=== PATIENT | female | born 1940 | race Caucasian/White ===

== ENCOUNTER 2017-05-19 15:23 | Emergency (ER) | payer MEDICARE ==
[~2017-05-19] VITALS: Ht 170.2 cm; Wt 73.9 kg
[~2017-05-19 15:23] MED LIST: ALPR1T PO; ALPRAZOLAM; AMLO5TAB2 PO; BENICAR; CEPH500C PO; IBUP-1773 PO; OLME1TAB25 PO; OLME20TA21 PO; PROC10TA23 PO; PROCHLORPERAZINE; [UNRECOGNIZED DRUG - REMARK]; [UNRECOGNIZED DRUG - REMARK]
[2017-05-19 16:34] LABS: KETONES,URINE 2+ (NEGATIVE); LEUKOCYTE ESTERASE ,URINE 1+ (NEGATIVE); NITRITE,URINE NEGATIVE (NEGATIVE); PH,URINE 6 (5-9); PROTEIN,URINE 2+ (NEGATIVE); UROBILINOGEN,URINE 1 MG/DL (NORMAL)
[2017-05-19 16:39] LABS: BASOPHILS % (AUTO) 0 % (0-10); EOSINOPHILS % (AUTO) 0 % (0-10); LYMPHOCYTES # (AUTO) 3.5 X 10^3 (1.0-4.0); LYMPHOCYTES % (AUTO) 21 % (12-44); MEAN CORPUSCULAR HEMOGLOBIN 28 PG (25-34); MEAN CORPUSCULAR HGB CONC 33 G/DL (32-36); MEAN CORPUSCULAR VOLUME 87 FL (80-99); MEAN PLATELET VOLUME 12.1 FL (7.4-10.4); MONOCYTES # (AUTO) 1.9 X 10^3 (0.0-1.0); MONOCYTES % (AUTO) 11 % (0-12); NEUTROPHILS # (AUTO) 11.5 X 10^3 (1.8-7.8); NEUTROPHILS % (AUTO) 68 % (42-75); PLATELET COUNT 131 10^3/uL (130-400); RED BLOOD COUNT 5.12 10^6/uL (4.35-5.85); RED CELL DISTRIBUTION WIDTH 15.9 % (10.0-14.5); WHITE BLOOD COUNT 16.9 10^3/uL (4.3-11.0)
[2017-05-19 16:46] LABS: BILIRUBIN,URINE 1+ (NEGATIVE); HYALINE CASTS, URINE RARE /LPF; WBC,URINE RARE /HPF
[2017-05-19 16:53] LABS: ALBUMIN 3.9 GM/DL (3.2-4.5); CALCIUM 9.5 MG/DL (8.5-10.1); CREATININE SERUM 0.96 MG/DL (0.60-1.30); POTASSIUM 3.4 MMOL/L (3.6-5.0); TOTAL PROTEIN 7.2 GM/DL (6.4-8.2)
[2017-05-19 17:04] LABS: LYMPHOCYTES % (MANUAL) 23 %; NEUTROPHILS % (MANUAL) 69 %
--- NOTE | 2017-05-19 17:22 | ED General ---
General Chief Complaint: General Problems/Pain Stated Complaint: DIZZINESS Nursing Triage Note: to ER by [facility] with reports of chronic back pain, chronic arm pain and intermittent numbness and overall poor personal hygeine and living conditions. Patient reports that she didnt have a way to get groceries, but has over $100 in [place] in hand upon arrival. EMS reports that patient told them that she needed a way to get to the grocery store and a way to get food. Denies any acute complaints. Nursing Sepsis Screen: No Definite Risk Source of Information: Patient Exam Limitations: No Limitations History of Present Illness Time Seen by Provider: 17:17 Initial Comments The patient is a 76-year-old female known to me through various encounters through the years. She called EMS today and when they arrived stated that she did not have any money but she needed to get groceries to eat. She told me that she A check and did have money but had no ability to get groceries she now states that if I would just discharge her she will call a cab And go to the grocery store. She has complaints of chronic back pain and musculoskeletal pain but none of This is new Timing/Duration: Other Allergies and Home Medications Allergies Coded Allergies: Penicillins (Verified Allergy, Intermediate, SWELLING , 04/22/13) THROAT SWELLS Home Medications Amlodipine Besylate 5 Mg Tablet, 5 MG PO DAILY, #30 (Reported) Benicar Hct 20 Mg Tablet, 1 EACH PO DAILY, (Reported) Constitutional: see HPI EENTM: no symptoms reported Respiratory: no symptoms reported Cardiovascular: no symptoms reported Gastrointestinal: no symptoms reported Genitourinary: no symptoms reported Musculoskeletal: back pain, joint pain, muscle pain, muscle stiffness Skin: no symptoms reported Psychiatric/Neurological: No Symptoms Reported Hematologic/Lymphatic: No Symptoms Reported Immunological/Allergic: no symptoms reported Past Lpcnyuz-Ghcxai-Guwlft Hx Patient Social History Alcohol Use: Denies Use Recreational Drug Use: No Smoking Status: Never a Smoker 2nd Hand Smoke Exposure: No Recent Foreign Travel: No Contact w/Someone Who Travel: No Recent Infectious Disease Expo: No Recent Hopitalizations: No Physical Abuse: No Sexual Abuse: No Mistreated: No Fear: No Immunizations Up To Date Tetanus Booster (TDap): Unknown Date of Pneumonia Vaccine: Jun 18, 2008 Seasonal Allergies Seasonal Allergies: Yes Surgeries History of Surgeries: No Respiratory History of Respiratory Disorde: No Respiratory Disorders: COPD Cardiovascular History of Cardiac Disorders: No Neurological History of Neurological Disord: No Reproductive System Sexually Transmitted Disease: No Genitourinary Genitourinary Disorders: UTI-Chronic Gastrointestinal History of Gastrointestinal Di: No Musculoskeletal History of Musculoskeletal Dis: Yes (ARTHRITIS IN NECK ) Endocrine History of Endocrine Disorders: No Cancer History of Cancer: No Psychosocial History of Psychiatric Problem: Yes (OVERDOSED ON XANAX 02/2013--HISTORY OF EXCESSIVE USE/ABUSE OF XANAX) Behavioral Health Disorders: Anxiety Suicide Risk Score: 0 Integumentary History of Skin or Integumenta: No Blood Transfusions History of Blood Disorders: No Physical Exam Vital Signs Vital Sign - Last 12Hours 05/19/17 15:29 Temp 98.5 Pulse 76 Resp 16 B/P (MAP) 151/69 Pulse Ox 99 O2 Delivery Room Air Capillary Refill : Less Than 3 Seconds General Appearance: No Apparent Distress, WD/WN, Other (poorly groomed) Eyes: Bilateral Eye Normal Inspection HEENT: Normal ENT Inspection Neck: Normal Inspection Respiratory: Chest Non Tender, Lungs Clear, Normal Breath Sounds, No Accessory Muscle Use, No Respiratory Distress Cardiovascular: Regular Rate, Rhythm, No Edema, No Gallop, No JVD, No Murmur, Normal Peripheral Pulses Back: Normal Inspection Neurologic/Psychiatric: Alert, Oriented x3, No Motor/Sensory Deficits, Normal Mood/Affect, warehouse associate II-XII Norm as Tested Skin: Other Lymphatic: No Adenopathy Progress/Results/Core Measures Results/Orders Lab Results Laboratory Tests Test 05/19/17 16:15 05/19/17 16:20 Range/Units Urine Color YELLOW Urine Clarity CLEAR Urine pH 6 5-9 Urine Specific [place] 1.015 L 1.016-1.022 Urine Protein 2+ H NEGATIVE Urine Glucose (UA) NEGATIVE NEGATIVE Urine Ketones 2+ H NEGATIVE Urine Nitrite NEGATIVE NEGATIVE Urine Bilirubin 1+ H NEGATIVE Urine Urobilinogen 1 NORMAL MG/DL Urine Leukocyte Esterase 1+ H NEGATIVE Urine RBC (Auto) 2+ H NEGATIVE Urine RBC NONE /HPF Urine WBC RARE /HPF Urine Squamous Epithelial Cells 10-25 H /HPF Urine Crystals NONE /LPF Urine Bacteria TRACE /HPF Urine Casts PRESENT /LPF Urine Hyaline Casts RARE /LPF Urine Mucus NEGATIVE /LPF Urine Culture Indicated NO White Blood Count 16.9 H 4.3-11.0 10^3/uL Red Blood Count 5.12 4.35-5.85 10^6/uL Hemoglobin 14.5 11.5-16.0 G/DL Hematocrit 44 35-52 % Mean Corpuscular Volume 87 80-99 FL Mean Corpuscular Hemoglobin 28 25-34 PG Mean Corpuscular Hemoglobin Concent 33 32-36 G/DL Red Cell Distribution Width 15.9 H 10.0-14.5 % Platelet Count 131 130-400 10^3/uL Mean Platelet Volume 12.1 H 7.4-10.4 FL Neutrophils (%) (Auto) 68 42-75 % Lymphocytes (%) (Auto) 21 12-44 % Monocytes (%) (Auto) 11 0-12 % Eosinophils (%) (Auto) 0 0-10 % Basophils (%) (Auto) 0 0-10 % Neutrophils # (Auto) 11.5 H 1.8-7.8 X 10^3 Lymphocytes # (Auto) 3.5 1.0-4.0 X 10^3 Monocytes # (Auto) 1.9 H 0.0-1.0 X 10^3 Eosinophils # (Auto) 0.0 0.0-0.3 10^3/uL Basophils # (Auto) 0.0 0.0-0.1 10^3/uL Neutrophils % (Manual) 69 % Lymphocytes % (Manual) 23 % Monocytes % (Manual) 8 % Blood Morphology Comment NORMAL Sodium Level 140 135-145 MMOL/L Potassium Level 3.4 L 3.6-5.0 MMOL/L Chloride Level 103 98-107 MMOL/L Carbon Dioxide Level 24 21-32 MMOL/L Anion Gap 13 5-14 MMOL/L Blood Urea Nitrogen 22 H 7-18 MG/DL Creatinine 0.96 0.60-1.30 MG/DL Estimat Glomerular Filtration Rate 56 BUN/Creatinine Ratio 23 Glucose Level 93 70-105 MG/DL Calcium Level 9.5 8.5-10.1 MG/DL Total Bilirubin 1.0 0.1-1.0 MG/DL Aspartate Amino Transf (AST/SGOT) 68 H 5-34 U/L Alanine Aminotransferase (ALT/SGPT) 39 0-55 U/L Alkaline Phosphatase 51 40-136 U/L Total Protein 7.2 6.4-8.2 GM/DL Albumin 3.9 3.2-4.5 GM/DL My Orders Orders - KEYONNA MONTES DE OCA MD Dys2 Mechanically Altered (05/19/17 Dinner) Cbc With Automated Diff (05/19/17 16:02) Comprehensive Metabolic Panel (05/19/17 16:02) Ua Culture If Indicated (05/19/17 16:02) Manual Differential (05/19/17 16:20) Vital Signs/I&O Vital Sign - Last 12Hours 05/19/17 15:29 Temp 98.5 Pulse 76 Resp 16 B/P (MAP) 151/69 Pulse Ox 99 O2 Delivery Room Air Blood Pressure Mean: 96 Departure Communication (Admissions) Progress Notes It is noted that her white blood count is 16,900 today. There are no indications of infection. Exploring her old records showed an episode in November through February 2013 with heart tones in the 11 through 18,000 range over a period of greater than 2 months. Impression Impression: Primary Impression: Chronic pain Additional Impression: General medical exam Disposition: 01 HOME, SELF-CARE Condition: Stable/Unchanged Departure-Patient Inst. Decision time for Depature: 17:24 Referrals: GUME THOMAS MD (PCP/Family) Primary Care Physician Patient Instructions: CHRONIC PAIN Add. Discharge Instructions: All discharge instructions reviewed with patient and/or family. Voiced understanding. Proceed to purchase groceries. If any change in condition return to emergency room KEYONNA MONTES DE OCA MD May 19, 2017 17:22
[2017-05-19 17:56] VITALS: BP 144/71
== END 2017-05-19 17:56 | disposition home or self-care (01) ==
LOC: EDUNIT# 15:23 → ER 15:24
DX: G89.29 Other chronic pain (principal); M54.9 Dorsalgia, unspecified; F41.9 Anxiety disorder, unspecified; J44.9 Chronic obstructive pulmonary disease, unspecified; Z87.440 Personal history of urinary (tract) infections
CPT/HCPCS: 36415; 80053; 81000; 85007; 85027; 99283

== ENCOUNTER 2018-01-19 10:30 | Outpatient (CLI) | payer MEDICARE ==
[~2018-01-19] VITALS: Ht 170.2 cm; Wt 64.4 kg
[2018-01-19] MEDS ORDERED: PROM25TA14 PO (11:02)
[2018-01-19] MEDS ORDERED: OLME20TA24 PO (11:02)
[2018-01-19] MEDS ORDERED: HYDR-3812 PO (11:02)
[2018-01-19] MEDS ORDERED: OXYB10TA PO (11:02)
[2018-01-19] MEDS ORDERED: TRAZ100T92 PO (11:02)
[2018-01-19] MEDS ORDERED: CITA40TA11 PO (11:02)
[2018-01-19] MEDS ORDERED: AMLO5TAB2 PO (11:02)
[2018-01-19] MEDS ORDERED: ALPR1TAB7 PO (11:02)
== END 2018-01-19 11:04 ==
LOC: PREOP 10:30
PROVIDERS: ATTEND Surgery
DX: Z01.818 Encounter for other preprocedural examination (principal)

== ENCOUNTER 2018-01-24 09:37 | Day surgery (SDC) | payer MEDICARE ==
[~2018-01-24] VITALS: Ht 170.2 cm; Wt 64.4 kg
[~2018-01-24 09:37] MED LIST changes: +ALPR1TAB7 PO; +CITA40TA11 PO; +HYDR-3812 PO; +OLME20TA24 PO; +OXYB10TA PO; +PROM25TA14 PO; +TRAZ100T92 PO
--- OUTSIDE RECORDS SUMMARY | 2018-01-24 09:41 | XMS REPORT | Continuity of Care Document ---
Author Author [facility] Organization [facility] Address Unknown Phone Unavailable Allergies Active Description Code Type Severity Reaction Onset Reported/Identified Relationship to Patient Clinical Status Yes Penicillins [id number] Drug Allergy Moderate SWELLING 04/22/2013 Medications There is no data. Problems Date Dx Coded Attending Type Code Diagnosis Diagnosed By 12/17/2012 Ot 276.1 HYPOSMOLALITY 12/17/2012 Ot 276.8 HYPOPOTASSEMIA 12/17/2012 Ot 305.1 TOBACCO USE DISORDER 12/17/2012 Ot 401.9 HYPERTENSION NOS 12/17/2012 Ot 496 CHR AIRWAY OBSTRUCT NEC 12/17/2012 Ot 593.9 RENAL URETERAL DIS NOS 12/17/2012 Ot 599.0 URIN TRACT INFECTION NOS 02/13/2013 FRANCOIS TUTTLE, DIAZ Saavedra Ot 780.99 OTHER GENERAL SYMPTOMS NOS 02/19/2013 KEYONNA MONTES DE OCA MD Ot 276.1 HYPOSMOLALITY 02/19/2013 KEYONNA MONTES DE OCA MD Ot 276.8 HYPOPOTASSEMIA 02/19/2013 KEYONNA MONTES DE OCA MD Ot 297.1 DELUSIONAL DISORDER 02/19/2013 KEYONNA MONTES DE OCA MD Ot 300.00 ANXIETY STATE NOS 02/19/2013 KEYONNA MONTES DE OCA MD Ot 305.1 TOBACCO USE DISORDER 02/19/2013 KEYONNA MONTES DE OCA MD Ot 311 DEPRESSIVE DISORDER NEC 02/19/2013 KEYONNA MONTES DE OCA MD Ot 401.9 HYPERTENSION NOS 02/19/2013 KEYONNA MONTES DE OCA MD Ot 496 CHR AIRWAY OBSTRUCT NEC 02/19/2013 KEYONNA MONTES DE OCA MD Ot V58.69 OTH MED,LT,CURRENT USE 04/22/2013 ABEL BUSTAMANTE DO Ot 300.00 ANXIETY STATE NOS 07/20/2015 WILLIAM TUTTLE, GUME Marx Ot J44.1 01/12/2016 MELANIA OLIVARES [facility] Ot D72.829 ELEVATED WHITE BLOOD CELL COUNT, UNSPECI 02/03/2016 MARSHALLMELANIA ISABELLE Ot D72.829 ELEVATED WHITE BLOOD CELL COUNT, UNSPECI 03/10/2016 MAKENZIE MILTON MD Ot D72.829 ELEVATED WHITE BLOOD CELL COUNT, UNSPECI 04/26/2016 KARINE TUTTLE MAKENZIE Arlet Ot D72.829 ELEVATED WHITE BLOOD CELL COUNT, UNSPECI 04/26/2016 MAKENZIE MILTON MD Ot D75.1 SECONDARY POLYCYTHEMIA 04/26/2016 MAKENZIE MILTON MD Ot F17.210 NICOTINE DEPENDENCE, CIGARETTES, UNCOMPL 04/26/2016 MAKENZIE MILTON MD Ot F32.9 MAJOR DEPRESSIVE DISORDER, SINGLE EPISOD 04/26/2016 MAKENZIE MILTON MD Ot I10 ESSENTIAL (PRIMARY) HYPERTENSION 04/26/2016 MAKENZIE MILTON MD Ot J44.9 CHRONIC OBSTRUCTIVE PULMONARY DISEASE, U 04/26/2016 MAKENZIE MILTON MD Ot 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 04/28/2016 MAKENZIE MILTON MD Ot D75.1 SECONDARY POLYCYTHEMIA 04/28/2016 MAKENZIE MILTON MD Ot F17.210 NICOTINE DEPENDENCE, CIGARETTES, UNCOMPL 04/28/2016 MAKENZIE MILTON MD Ot F32.9 MAJOR DEPRESSIVE DISORDER, SINGLE EPISOD 04/28/2016 MAKENZIE MILTON MD Ot I10 ESSENTIAL (PRIMARY) HYPERTENSION 04/28/2016 MAKENZIE MILTON MD Ot J44.9 CHRONIC OBSTRUCTIVE PULMONARY DISEASE, U 04/28/2016 MAKENZIE MILTON MD Ot Z79.899 OTHER RETIREMENT (CURRENT) DRUG THERAPY 12/21/2016 KEYONNA MONTES DE OCA MD Ot 719.42 JOINT PAIN-UP/ARM 12/21/2016 KEYONNA MONTES DE OCA MD Ot 831.01 ANT DISLOC HUMERUS-CLOSE 12/21/2016 KEYONNA MONTES DE OCA MD Ot 831.03 INFER DISLOC HUMERUS-CL 12/21/2016 KEYONNA MONTES DE OCA MD Ot E000.8 OTHER EXTERNAL CAUSE STATUS 12/21/2016 KEYONNA MONTES DE OCA MD Ot E849.0 ACCIDENT IN HOME 12/21/2016 KEYONNA MONTES DE OCA MD Ot E888.9 FALL NOS 12/21/2016 RICHI ZIMMERMAN MD Ot 719.61 JOINT SYMPTOM NEC-SHLDER 12/21/2016 ALVAREZ CHAVEZ DO Ot V72.84 EXAM PRE-OPERATIVE NOS 12/21/2016 WILLIAM TUTTLE, GUME Marx Ot 305.1 TOBACCO USE DISORDER 12/21/2016 ALVAREZ CHAVEZ DO Ot V72.84 EXAM PRE-OPERATIVE NOS 12/21/2016 ALVAREZ CHAVEZ DO Ot V72.84 EXAM PRE-OPERATIVE NOS 12/21/2016 WILLIAM TUTTLE, GUME Marx Ot J44.1 CHRONIC OBSTRUCTIVE PULMONARY DISEASE W 12/21/2016 MARSHALL MELANIA M ARNP Ot D72.829 ELEVATED WHITE BLOOD CELL COUNT, UNSPECI 12/21/2016 KARINE TUTTLE, MAKENZIE Nice Ot D72.829 ELEVATED WHITE BLOOD CELL COUNT, UNSPECI 05/19/2017 KEYONNA MONTES DE OCA MD Ot F41.9 ANXIETY DISORDER, UNSPECIFIED 05/19/2017 KEYONNA MONTES DE OCA MD Ot G89.29 OTHER CHRONIC PAIN 05/19/2017 KEYONNA MONTES DE OCA MD Ot J44.9 CHRONIC OBSTRUCTIVE PULMONARY DISEASE, U 05/19/2017 KEYONNA MONTES DE OCA MD Ot M54.9 DORSALGIA, UNSPECIFIED 05/19/2017 KEYONNA MONTES DE OCA MD Ot Z87.440 PERSONAL HISTORY OF URINARY (TRACT) INFE 01/19/2018 DARRICK TUTTLE, SONIA Hernández Ot Z01.818 ENCOUNTER FOR OTHER PREPROCEDURAL EXAMIN Procedures There is no data. Results Test Result Range Complete urinalysis with reflex to culture - 05/19/17 16:15 Urine color determination YELLOW NRG Urine clarity determination CLEAR NRG Urine pH measurement by test strip 6 5-9 Specific gravity of urine by test strip 1.015 1.016- 1.022 Urine protein assay by test strip, semi-quantitative 2+ NEGATIVE Urine glucose detection by automated test strip NEGATIVE NEGATIVE Erythrocytes detection in urine sediment by light microscopy 2+ NEGATIVE Urine ketones detection by automated test strip 2+ NEGATIVE Urine nitrite detection by test strip NEGATIVE NEGATIVE Urine total bilirubin detection by test strip 1+ NEGATIVE Urine urobilinogen measurement by automated test strip (mass/volume) 1 mg/dL NORMAL Urine leukocyte esterase detection by dipstick 1+ NEGATIVE Automated urine sediment erythrocyte count by microscopy (number/high power field) NONE NRG Automated urine sediment leukocyte count by microscopy (number/high power field ) RARE NRG Bacteria detection in urine sediment by light microscopy TRACE NRG Squamous epithelial cells detection in urine sediment by light microscopy 10-25 NRG Crystals detection in urine sediment by light microscopy NONE NRG Casts detection in urine sediment by light microscopy PRESENT NRG Mucus detection in urine sediment by light microscopy NEGATIVE NRG Complete urinalysis with reflex to culture NO NRG Hyaline casts detection in urine sediment by light microscopy RARE NRG Complete blood count (CBC) with automated white blood cell (WBC) differential - 05/19/17 16:20 Blood leukocytes automated count (number/volume) 16.9 10*3/uL 4.3-11.0 Blood erythrocytes automated count (number/volume) 5.12 10*6/uL 4.35-5.85 Venous blood hemoglobin measurement (mass/volume) 14.5 g/dL 11.5-16.0 Blood hematocrit (volume fraction) 44 % 35-52 Automated erythrocyte mean corpuscular volume 87 [foz_us] 80-99 Automated erythrocyte mean corpuscular hemoglobin (mass per erythrocyte) 28 pg 25-34 Automated erythrocyte mean corpuscular hemoglobin concentration measurement ( mass/volume) 33 g/dL 32-36 Automated erythrocyte distribution width ratio 15.9 % 10.0-14.5 Automated blood platelet count (count/volume) 131 10*3/uL 130-400 Automated blood platelet mean volume measurement 12.1 [foz_us] 7.4-10.4 Automated blood neutrophils/100 leukocytes 68 % 42-75 Automated blood lymphocytes/100 leukocytes 21 % 12-44 Blood monocytes/100 leukocytes 11 % 0-12 Automated blood eosinophils/100 leukocytes 0 % 0-10 Automated blood basophils/100 leukocytes 0 % 0-10 Blood neutrophils automated count (number/volume) 11.5 10*3 1.8-7.8 Blood lymphocytes automated count (number/volume) 3.5 10*3 1.0-4.0 Blood monocytes automated count (number/volume) 1.9 10*3 0.0-1.0 Automated eosinophil count 0.0 10*3/uL 0.0-0.3 Automated blood basophil count (count/volume) 0.0 10*3/uL 0.0-0.1 Comprehensive metabolic panel - 05/19/17 16:20 Serum or plasma sodium measurement (moles/volume) 140 mmol/L 135-145 Serum or plasma potassium measurement (moles/volume) 3.4 mmol/L 3.6-5.0 Serum or plasma chloride measurement (moles/volume) 103 mmol/L 98-107 Carbon dioxide 24 mmol/L 21-32 Serum or plasma anion gap determination (moles/volume) 13 mmol/L 5-14 Serum or plasma urea nitrogen measurement (mass/volume) 22 mg/dL 7-18 Serum or plasma creatinine measurement (mass/volume) 0.96 mg/dL 0.60-1.30 Serum or plasma urea nitrogen/creatinine mass ratio 23 NRG Serum or plasma creatinine measurement with calculation of estimated glomerular filtration rate 56 NRG Serum or plasma glucose measurement (mass/volume) 93 mg/dL 70-105 Serum or plasma calcium measurement (mass/volume) 9.5 mg/dL 8.5-10.1 Serum or plasma total bilirubin measurement (mass/volume) 1.0 mg/dL 0.1-1.0 Serum or plasma alkaline phosphatase measurement (enzymatic activity/volume) 51 U/L 40-136 Serum or plasma aspartate aminotransferase measurement (enzymatic activity/ volume) 68 U/L 5-34 Serum or plasma alanine aminotransferase measurement (enzymatic activity/volume ) 39 U/L 0-55 Serum or plasma protein measurement (mass/volume) 7.2 g/dL 6.4-8.2 Serum or plasma albumin measurement (mass/volume) 3.9 g/dL 3.2-4.5 Blood manual differential performed detection - 05/19/17 16:20 Blood monocytes/100 leukocytes 8 % NRG Manual blood segmented neutrophils/100 leukocytes 69 % NRG Manual blood lymphocytes/100 leukocytes 23 % NRG Blood erythrocyte morphology finding identification NORMAL NRG Encounters ACCT No. Visit Date/Time Discharge Status Pt. Type Provider Facility Loc./Unit Complaint [id number] 01/19/2018 10:30:00 01/19/2018 11:04:00 DIS Outpatient SONIA HOLLINGSWORTH MD [facility] PREOP SKIN LESION [id number] 09/22/2017 10:00:00 09/22/2017 23:59:59 CLS Preadmit SONIA HOLLINGSWORTH MD [facility] SDC SKIN LESION [id number] 05/19/2017 15:24:00 05/19/2017 17:56:00 DIS Emergency KEYONNA MONTES DE OCA MD [facility] ER DIZZINESS [id number] 04/27/2016 00:11:00 04/27/2016 23:59:59 CLS Preadmit MAKENZIE MILTON MD [facility] ONC [id number] 02/18/2016 10:59:00 04/26/2016 00:01:00 DIS Outpatient MAKENZIE MILTON MD [facility] ONC [id number] 01/11/2016 10:39:00 01/11/2016 23:59:59 CLS Outpatient MARSHALLMELANIA ISABELLE [facility] LAB ELEVATED WBC [id number] 06/24/2015 12:45:00 06/24/2015 23:59:59 CLS Outpatient GUME THOMAS MD [facility] RAD ACUTE COPD EXACERBATION [id number] 09/19/2013 09:27:00 09/19/2013 23:59:59 CLS Outpatient ALVAREZ CHAVEZ DO [facility] PREOP DYSPHASIA [id number] 08/22/2013 07:25:00 08/22/2013 23:59:59 CLS Outpatient ALVAREZ CHAVEZ DO [facility] PREOP DYSPHAGIA [id number] 07/10/2013 07:27:00 07/10/2013 23:59:59 CLS Outpatient ALVAREZ CHAVEZ DO [facility] PREOP DYSPHAGIA [id number] 06/27/2013 10:00:00 06/27/2013 23:59:59 CLS Outpatient GUME THOMAS MD [facility] RAD TABACCO USE [id number] 04/22/2013 15:00:00 04/22/2013 16:09:00 DIS Emergency ABEL BUSTAMANTE DO [facility] ER NERVOUS STOMACH [id number] 02/17/2013 17:52:00 02/19/2013 15:05:00 DIS Inpatient KEYONNA MONTES DE OCA MD [facility] 4TH BENZODIAZEPINE OVERDOSE [id number] 02/13/2013 14:30:00 02/13/2013 17:12:00 DIS Emergency FRANCOIS TUTTLE, DIAZ Saavedra [facility] ER OUT OF MEDS [id number] 01/17/2013 08:02:00 01/17/2013 23:59:59 CLS Outpatient RICHI ZIMMERMAN MD [facility] RAD DISLOCATED SHOULDER [id number] 01/15/2013 08:46:00 01/15/2013 23:59:59 CLS Outpatient TAVON TUTTLE, KEYONNA Nice [facility] RAD FALL/PAIN [id number] 01/24/2018 10:30:00 PEN Preadmit DARRICK TUTTLE, SONIA Hernández [facility] SDC SKIN LESION [id number] 12/21/2016 12:42:00 Document Registration [id number] 12/14/2012 19:45:00 Document Registration [id number] 06/24/2015 12:46:48 ACT Document Registration 0000 08/07/2017 13:14:07 08/07/2017 23:59:59 CLS Outpatient
[2018-01-24] MEDS ORDERED: LIDOCAINE PF 2% 5 ML (XYLOCAINE) VIAL ONE (09:52)
[2018-01-24] MEDS ORDERED: SEVOFLURANE (ULTANE) 15 ML INHAL SOLN ONE ×3 (09:52→11:31)
[2018-01-24] MEDS ORDERED: proPOfol 200 MG/20 ML (DIPRIVAN) VIAL IV ONE (09:52)
[2018-01-24] MEDS ORDERED: ONDANSETRON 4 MG/2 ML (SDV) Z0FRAN ONE (09:52)
[2018-01-24] MEDS ORDERED: fentaNYL INJECTION 100 MCG/2 ML AMP ONE (09:53)
[2018-01-24] MEDS ORDERED: MIDAZOLAM 2 MG/2 ML (VERSED) VIAL ONE (09:53)
[2018-01-24] MEDS ORDERED: BUP/EPI 0.5% 1:200,000 (SENSORCAINE) 30 ML VIAL ONE (10:08)
[2018-01-24] MEDS ORDERED: LACTATED RINGERS 1,000 ML IV PRN (10:17)
[2018-01-24] MEDS ORDERED: VANCOMYCIN INJECTION 1,000 MG in NS (IVPB) 250 ML IV ONE (10:30)
[2018-01-24 10:35] VITALS: BP 120/67
--- NOTE | 2018-01-24 10:40 | History & Physicial ---
History of Present Illness History of Present Illness Reason for visit/HPI To undergo wedge biopsy of a 4 cm lesion over the bridge of the nose Date of Admission 01/24/18 Date Seen by Provider: January 24, 2018 Time Seen by Provider: 09:45 I consulted on this patient on 01/24/18 10:38 Attending Physician Sonia Mittal MD Admitting Physician Lacy Mayen MD Consult Allergies and Home Medications Allergies Coded Allergies: Penicillins (Verified Allergy, Intermediate, SWELLING , 04/22/13) THROAT SWELLS Home Medications Alprazolam 1 Mg Tablet, 1 MG PO TID PRN for ANXIETY, (Reported) Amlodipine Besylate 5 Mg Tablet, 5 MG PO DAILY, (Reported) Citalopram Hydrobromide 40 Mg Tablet, 40 MG PO DAILY, (Reported) Hydrocodone/Acetaminophen 1 Each Tablet, 1 EACH PO TID PRN for PAIN-MILD TO MODERATE, (Reported) Olmesartan Medoxomil 20 Mg Tablet, 20 MG PO DAILY, (Reported) Oxybutynin Chloride 10 Mg Tab.er.24, 10 MG PO DAILY, (Reported) Promethazine HCl 25 Mg Tablet, 25 MG PO Q6H PRN for NAUSEA/VOMITING, (Reported) Trazodone HCl 100 Mg Tablet, 100 MG PO HS, (Reported) Patient Home Medication List Home Medication List Reviewed: Yes Past Ofousww-Otclqf-Atchze Hx Patient Social History Employed/Student: unemployed Type Used: Cigarettes 2nd Hand Smoke Exposure: No Recent Foreign Travel: No Contact w/other who traveled: No Recent Hopitalizations: No Immunizations Up To Date Tetanus Booster (TDap): Unknown Date of Pneumonia Vaccine: Jun 18, 2008 Seasonal Allergies Seasonal Allergies: No Surgeries No Respiratory No Cardiovascular Yes Hypertension Neurological No Reproductive System Hx Reproductive Disorders: No Sexually Transmitted Disease: No Genitourinary UTI-Chronic Gastrointestinal No Musculoskeletal Yes (ARTHRITIS IN NECK ) Arthritis Endocrine History of Endocrine Disorders: No Cancer No Psychosocial History of Psychiatric Problem: Yes (OVERDOSED ON XANAX 02/2013--HISTORY OF EXCESSIVE USE/ABUSE OF XANAX) Behavioral Health Disorders: Anxiety, Depression Integumentary History of Skin or Integumenta: No Blood Transfusions History of Blood Disorders: No Constitutional: no symptoms reported EENTM: no symptoms reported Respiratory: no symptoms reported Cardiovascular: no symptoms reported Gastrointestinal: no symptoms reported Genitourinary: no symptoms reported Musculoskeletal: joint pain Skin: see HPI Psychiatric/Neurological: No Symptoms Reported Physical Exam Vital Signs Capillary Refill : General Appearance: No Apparent Distress Neck: Normal Inspection Neurologic/Psychiatric: Oriented x3 Skin: Other Comments 3cm raised lesion over the bridge of the nose. Assessment/Plan Assessment and Plan Lesion over the bridge of the nose, for wedge biopsy Admission Diagnosis Admission Status: Other (Same Day Surgery) SONIA MITTAL MD January 24, 2018 10:40 am
--- NOTE | 2018-01-24 10:41 | Progress Note-Pre Operative ---
Pre-Operative Progress Note H&P Reviewed The H&P was reviewed, patient examined and no changes noted. Date Seen by Provider: January 24, 2018 Time Seen by Provider: 09:45 Date H&P Reviewed: January 24, 2018 Time H&P Reviewed: 10:40 Pre-Operative Diagnosis: Skin lesion-Bridge of nose SONIA HOLLINGSWORTH MD January 24, 2018 10:41 am
--- NOTE | 2018-01-24 10:42 | Discharge Inst-Simple/Standard ---
Discharge Inst-Standard Discharge Medications New, Converted or Re-Newed RX: Other Patient Instructions/Follow Up Plan of Care/Instructions/FU: We would call once path report is available Activity as Tolerated: Yes Discharge Diet: No Restrictions SONIA HOLLINGSWORTH MD January 24, 2018 10:42 am
[2018-01-24] MEDS ORDERED: MEPERIDINE (DEMEROL) INJ 50 MG/ML IVP PRN (12:00)
[2018-01-24] MEDS ORDERED: ONDANSETRON 4 MG/2 ML (SDV) Z0FRAN IVP PRN (12:00)
--- NOTE | 2018-01-24 12:16 | Operative Report ---
Operative Report Date of Procedure/Surgery January 24, 2018 Surgeon (s) SONIA HOLLINGSWORTH MD Senior [id number] (s): N/A Post-Operative Diagnosis Same Procedure Performed Excision with primary closure Description of Procedure Anesthesia Type: General Estimated blood loss (mL): Minimal Specimen(s) collected/removed Skin lesion Description of the Procedure Indication for the procedure: This lady presented with a raised lesion about 3 x 2 cm in size, involving the bridge of her nose. Initially, wedge biopsy was contemplated. However, as would be described under the operative report, excision with primary closure appeared to be feasible. Informed consent was obtained after reviewing the procedure in detail. Description of procedure: She was placed supine on the operating table and general anesthesia induced using a laryngeal mask airway. A gram of Ancef was administered intravenously as prophylaxis against wound infection. Pre-emptive analgesia was established using 0.5 percent Marcaine with epinephrine. An elliptical incision 4 cm in length by 2 cm in width was made and the lesion excised down to the subcutaneous tissue. It was oriented with silk sutures and sent for formal histologic examination. Hemostasis was achieved using cautery and the edges of the incision where approximated using interrupted 6-0 nylon sutures. She tolerated the procedure well, was extubated in the operating room and taken to the recovery room in a stable condition. Findings of the Procedure See op report Allergies and Home Medications Allergies Coded Allergies: Penicillins (Verified Allergy, Intermediate, SWELLING , 04/22/13) THROAT SWELLS Home Medications Alprazolam 1 Mg Tablet, 1 MG PO TID PRN for ANXIETY, (Reported) Amlodipine Besylate 5 Mg Tablet, 5 MG PO DAILY, (Reported) Citalopram Hydrobromide 40 Mg Tablet, 40 MG PO DAILY, (Reported) Hydrocodone/Acetaminophen 1 Each Tablet, 1 EACH PO TID PRN for PAIN-MILD TO MODERATE, (Reported) Olmesartan Medoxomil 20 Mg Tablet, 20 MG PO DAILY, (Reported) Oxybutynin Chloride 10 Mg Tab.er.24, 10 MG PO DAILY, (Reported) Promethazine HCl 25 Mg Tablet, 25 MG PO Q6H PRN for NAUSEA/VOMITING, (Reported) Trazodone HCl 100 Mg Tablet, 100 MG PO HS, (Reported) Patient Home Medication List Home Medication List Reviewed: Yes SONIA HOLLINGSWORTH MD January 24, 2018 12:16 pm
--- NOTE | 2018-01-24 12:17 | Discharge Inst-Simple/Standard ---
Discharge Inst-Standard Discharge Medications New, Converted or Re-Newed RX: Other Patient Instructions/Follow Up Plan of Care/Instructions/FU: Follow-up with my nurse in 2 weeks for suture removal Activity as Tolerated: Yes Discharge Diet: No Restrictions SONIA HOLLINGSWORTH MD January 24, 2018 12:17 pm
[2018-01-24 12:30] VITALS: BP 117/60
[2018-01-24] MEDS ORDERED: HYDROmorphone 1 MG/ML (DILAUDID) 1 ML SYRINGE IV PRN (12:30)
--- NOTE | 2018-01-24 12:49 | Anesthesia-General Post-Op ---
General Patient Condition Mental Status/LOC: Same as Preop Cardiovascular: Satisfactory Nausea/Vomiting: Absent Respiratory: Satisfactory Pain: Controlled Complications: Absent Post Op Complications Complications None Follow Up Care/Instructions Patient Instructions None needed. Anesthesia/Patient Condition Patient Condition Patient is doing well, no complaints, stable vital signs, no apparent adverse anesthesia problems. No complications reported per nursing. TIANA FARRELL CRNA January 24, 2018 12:49
[2018-01-24 13:00] VITALS: BP 133/70
[2018-01-24 14:30] VITALS: BP 133/70
== END 2018-01-24 14:30 | disposition home or self-care (01) ==
LOC: SDC 09:37
PROVIDERS: ATTEND Surgery
DX: C44.311 Basal cell carcinoma of skin of nose (principal); I10 Essential (primary) hypertension; F32.9 Major depressive disorder, single episode, unspecified; F41.9 Anxiety disorder, unspecified; Z11.2 Encounter for screening for other bacterial diseases; Z88.0 Allergy status to penicillin; Z79.899 Other long term (current) drug therapy; Z87.891 Personal history of nicotine dependence
CPT/HCPCS: 87081; 88305

== ENCOUNTER → 2018-08-28 | Outpatient (CLI) | payer MEDICARE ==
[~2018-08-28] MED LIST changes: +AMLO5TAB7 PO; +TRAZ-190 PO; -TRAZ100T92 PO
[2018-08-28 13:20] LABS: BACTERIA,URINE LARGE /HPF; BILIRUBIN,URINE NEGATIVE (NEGATIVE); CLARITY,URINE SLIGHTLY CLOUDY; COLOR,URINE YELLOW; GLUCOSE, URINE (UA) NEGATIVE (NEGATIVE); KETONES,URINE NEGATIVE (NEGATIVE); LEUKOCYTE ESTERASE ,URINE 3+ (NEGATIVE); NITRITE,URINE POSITIVE (NEGATIVE); PH,URINE 6 (5-9); PROTEIN,URINE 1+ (NEGATIVE); RBC,URINE RARE /HPF; UROBILINOGEN,URINE NORMAL (NORMAL); WBC,URINE >100 /HPF
== END ==
PROVIDERS: ATTEND Family Medicine
DX: R32 Unspecified urinary incontinence (principal)
CPT/HCPCS: 81000; 87077; 87088; 87186

== ENCOUNTER → 2018-12-31 | Outpatient (CLI) | payer MEDICARE, MEDICAID ==
[~2018-12-31] MED LIST changes: -AMLO5TAB7 PO; +AMLO5TAB9 PO
== END ==
LOC: CARD 15:09
PROVIDERS: ATTEND Nurse Practitioner Family
DX: I48.91 Unspecified atrial fibrillation (principal)
CPT/HCPCS: 93005

== ENCOUNTER → 2019-09-17 | Outpatient (CLI) | payer MEDICARE, MEDICAID ==
[2019-09-17 18:48] LABS: BILIRUBIN,URINE NEGATIVE (NEGATIVE); CLARITY,URINE CLOUDY; COLOR,URINE YELLOW; GLUCOSE, URINE (UA) NEGATIVE (NEGATIVE); KETONES,URINE NEGATIVE (NEGATIVE); LEUKOCYTE ESTERASE ,URINE 1+ (NEGATIVE); NITRITE,URINE POSITIVE (NEGATIVE); PH,URINE 7.5 (5-9); PROTEIN,URINE TRACE (NEGATIVE)
[2019-09-17 18:56] LABS: BACTERIA,URINE LARGE /HPF; WBC,URINE TNTC /HPF
== END ==
LOC: LABNPT 18:43
PROVIDERS: ATTEND Family Medicine
DX: D72.829 Elevated white blood cell count, unspecified (principal)
CPT/HCPCS: 81000; 87077; 87088; 87186

== ENCOUNTER 2019-09-24 13:07 | Outpatient (RCR) | payer MEDICARE, MEDICAID ==
[~2019-09-24] VITALS: Ht 5.2 cm; Wt 54.0 kg
[~2019-09-24 13:07] MED LIST changes: +ACHD5005 PO; -HYDR-3812 PO; -OXYB10TA PO; +OXYB10TA29 PO; -TRAZ-190 PO; +TRAZ-227 PO
[2019-09-24] MEDS ORDERED: FERRIC CARBOXYMALTOSE INJ 750 MG in NS (IVPB) 250 ML IV SCH (13:30)
[2019-09-24 13:35] VITALS: BP 149/67
== END 2019-12-23 | disposition home or self-care (01) ==
LOC: SDC 13:07
PROVIDERS: ATTEND Nurse Practitioner Family
DX: D50.8 Other iron deficiency anemias (principal)
CPT/HCPCS: 96365